=== PATIENT | female | born 1945 | race Caucasian/White ===

== ENCOUNTER 2019-02-12 00:05 | Observation (INO) ==
[2019-02-12 00:38] LABS: Basophils % 0.4 %; Eosinophils # 0.1 K/mcL (0.0-0.6); Eosinophils % 1.5 %; Hematocrit 41.3 % (35.3-44.9); Hemoglobin 13.6 g/dL (11.5-15.4); Immature Granulocytes % 0.3 % (0-4); Lymphocytes # 1.9 K/mcL (0.6-4.6); Lymphocytes % 20.3 %; Mean Corpuscular HGB Conc 32.9 g/dL (31.6-35.5); Mean Corpuscular Hemoglobin 27.6 pg (28.0-33.3); Mean Corpuscular Volume 83.8 fL (83.0-100.0); Mean Platelet Volume 8.9 fL (9.4-12.4); Monocytes # 0.6 K/mcL (0.0-1.3); Monocytes % 6.4 %; Neutrophils # 6.5 K/mcL (1.6-8.9); Platelet Count 341 K/mcL (140-400); Red Blood Count 4.93 M/mcL (3.82-4.97); Red Cell Distribution Width 13.5 % (11.5-14.5); Segmented Neutrophils % 71.1 %; White Blood Count 9.2 K/mcL (4.3-11.1)
[2019-02-12 00:53] LABS: INR 1.2; Prothrombin Time 14.1 Seconds (9.4-12.1)
[2019-02-12 00:58] LABS: BUN/Creatinine Ratio 24 (6-26); Blood Urea Nitrogen 23 mg/dL (8-23); Calcium 10.5 mg/dL (8.6-10.3); Carbon Dioxide 25 mEq/L (23-29); Chloride 97 mEq/L (98-107); Glucose 168 mg/dL (70-105); Osmolality,Calculated 280 (280-300); Potassium 4.8 mEq/L (3.5-5.1); Sodium 131 mEq/L (136-145); eGFR For African Americans > 60 (> 60); eGFR For Non-African Americans 57 (> 60)
[2019-02-12] MEDS ORDERED: Naloxone 0.4 MG/ML INJ IVP PRN (02:18)
[2019-02-12] MEDS ORDERED: *HR* Dextrose 50 % in Water (Syg) 50 ML SYRINGE IVP PRN (02:57)
[2019-02-12] MEDS ORDERED: D5% in Water 1,000 ML IVC PRN (02:57)
[2019-02-12] MEDS ORDERED: Dextrose Gel 15 GM/37.5 ML TUBE PO PRN ×2 (02:57)
[2019-02-12] MEDS: 0.9 % Sodium Chloride 1,000 ML IVC SCH (03:58)
[2019-02-12] MEDS ORDERED: Aspirin Enteric Coated 81 MG Tablet PO SCH ×2 (07:30→09:00)
[2019-02-12] MEDS ORDERED: amLODIPine 5 MG TABLET PO SCH (09:00)
[2019-02-12] MEDS ORDERED: Aspirin Enteric Coated 81 MG Tablet PO ONE (16:44)
[2019-02-12] MEDS: Apixaban 5 MG TABLET PO SCH (20:28)
[2019-02-12] MEDS ORDERED: Insulin LISPRO 300 UNITS/3 ML VIAL SQ SCH (21:00)
[2019-02-12] MEDS ORDERED: Insulin DETEMIR 100 UNIT/ML per UNIT SQ SCH (21:00)
[2019-02-12] MEDS ORDERED: *HR* Metoprolol 5 MG/5 ML VIAL IVP ONE ×2 (23:23→23:45)
[2019-02-13] MEDS: Acetaminophen 325 MG TABLET PO PRN ×2 (00:02→08:42)
[2019-02-13] MEDS: Diltiazem CD (24hr) 240 MG CAPSULE PO SCH ×3 (05:12→08:42)
[2019-02-13] MEDS: Insulin LISPRO 300 UNITS/3 ML VIAL SQ SCH ×6 (05:12→08:41)
[2019-02-13] MEDS: Spironolactone 25 MG TABLET PO SCH ×2 (05:14→08:42)
[2019-02-13] MEDS: (Pravastatin Sodium 10 MG) PO SCH ×2 (05:15→08:43)
[2019-02-13] MEDS: Apixaban 5 MG TABLET PO SCH ×2 (05:15→08:42)
[2019-02-13] MEDS: 0.9 % Sodium Chloride 1,000 ML IVC SCH (05:17)
[2019-02-13 07:54] VITALS: BP 151/59
[2019-02-13] MEDS ORDERED: Aspirin Enteric Coated 81 MG Tablet PO SCH (09:00)
[2019-02-13] MEDS ORDERED: *HR* Dextrose 50 % in Water (Vial) 50 ML VIAL IVP PRN (09:29)
== END 2019-02-13 11:00 | disposition home or self-care (01) ==
LOC: EMEROOPIK 00:05 → INPPIK 00:05
PROVIDERS: ADMIT Internal Medicine; ATTEND Internal Medicine